=== PATIENT | female | born 1995 | race Hispanic/Latino ===

== ENCOUNTER 2020-09-13 19:43 | Emergency (ER) | payer OTHER ==
[~2020-09-13] VITALS: Ht 172.7 cm; Wt 66.2 kg
[2020-09-13 21:40] VITALS: BP 116/80
== END 2020-09-13 21:40 | disposition home or self-care (01) ==
LOC: FSED 20:02
DX: S52.611A Displaced fracture of right ulna styloid process, initial encounter for closed fracture (principal); V18.4XXA Pedal cycle driver injured in noncollision transport accident in traffic accident, initial encounter; Y93.55 Activity, bike riding; Y92.488 Other paved roadways as the place of occurrence of the external cause
CPT/HCPCS: 99283